=== PATIENT | male | born 1980 | race Caucasian/White ===

== ENCOUNTER 2019-11-30 09:53 | Outpatient (CLI) | payer OTHER | END 2019-11-30 10:08 | disposition home or self-care (01) | LOC: TOM 09:53 | PROVIDERS: ATTEND Specialist | DX: N20.0 Calculus of kidney (principal) ==

== ENCOUNTER 2019-12-14 10:27 | Outpatient (CLI) | payer OTHER | END 2019-12-14 10:42 | disposition home or self-care (01) | LOC: RAD 10:27 | PROVIDERS: ATTEND Specialist | DX: N20.0 Calculus of kidney (principal); N30.00 Acute cystitis without hematuria ==

== ENCOUNTER 2020-01-25 00:22 | Emergency (ER) | payer OTHER ==
[~2020-01-25] VITALS: Ht 160 cm; Wt 68.0 kg
[2020-01-25] MEDS ORDERED: KETO10TA2 PO (07:07)
[2020-01-25] MEDS ORDERED: TAMS0.4C PO (07:07)
== END 2020-01-25 07:24 | disposition home or self-care (01) ==
LOC: ER 00:22
DX: N20.1 Calculus of ureter (principal); R10.32 Left lower quadrant pain

== ENCOUNTER 2021-07-25 15:54 | Outpatient (CLI) | payer OTHER ==
[~2021-07-25 15:54] MED LIST: KETO10TA2 PO; TAMS0.4C PO
== END 2021-07-25 15:59 | disposition home or self-care (01) ==
LOC: LAB 15:54
PROVIDERS: ATTEND Obstetrics & Gynecology
DX: Z20.828 Contact with and (suspected) exposure to other viral communicable diseases (principal); Z20.818 Contact with and (suspected) exposure to other bacterial communicable diseases